=== PATIENT | male | born 1965 | race Caucasian/White ===

== ENCOUNTER 2018-11-11 07:54 | Day surgery (SDC) | payer OTHER ==
[~2018-11-11] VITALS: Ht 177.8 cm; Wt 105.2 kg
[~2018-11-11 07:54] MED LIST: MONTELUKAST SOD10 MG PO; WELLBUTRIN SR100 MG PO
--- NOTE | 2018-11-11 09:16 | NUR ---
11/11/18 0916 Lu Mckinley 0906- PT ARRIVES TO PACU. PT IS AROUSABLE TO NOXIOUS STIMULI, UNABLE TO FOLLOW INSTRUCTIONS. PT FALLS INSTANTLY BACK TO SLEEP. RESP EVEN AND UNLABORED. PT DOES SNORE WHEN SLEEPING. OXYGEN SAT HIGH 90'S ON 3L VIA NC. CO2 MONITOR STAYING IN THE 30'S. 0910- PT IS AROUSABLE TO VOICE. FALLS INSTANTLY BACK TO SLEEP.
--- NOTE | 2018-11-12 08:12 | OR ---
[facility] [address] [place], [place] [address] Signed DATE OF OPERATION: 11/11/2018 SURGEON: Nawaf Cleary MD PREOPERATIVE DIAGNOSES: 1. Right-sided diverticulosis. 2. Screening. POSTOPERATIVE DIAGNOSES: 1. Right and left-sided [id number] diverticulosis. 2. 5 mm polyp at 26 cm. 3. 3 mm polyps x3 at 10 cm. 4. Mildly indurated prostate gland. PROCEDURE PERFORMED: Colonoscopy with hot biopsy. ESTIMATED BLOOD LOSS: None. INDICATIONS: Shawn is a 53-year-old gentleman, asked to see me for a followup screening colonoscopy. In 2007, he had a colonoscopy for diarrhea, melena, and change in bowel habits. At that time, he had a diverticulum in the mid right colon. His biopsies came back unremarkable. He has no family history of colon cancer or polyps. He currently has no lower GI complaints. In the office, I gave him a pamphlet on colonoscopy. He understands the nature of the test along with the risks including but not limited to gas bloating, crampy abdominal pain, bleeding, perforation, requiring surgery, and missed diagnosis. He also understands the need for IV conscious sedation. He had expressed understanding and wished to proceed. PROCEDURE NOTE: Shawn was taken into our operating room and placed in the left lateral decubitus position. He was given IV sedation with 9 mg of Versed and 175 mcg of fentanyl to cover the case. A digital rectal exam was performed. He has good sphincter tone. His prostate is ever so slightly enlarged and mildly indurated. The adult colonoscope was then introduced and advanced all around into the cecum under direct visualization of camera without difficulty. His prep was good. The scope was slowly withdrawn. We took pictures throughout for photodocumentation. On this occasion, he does have moderate sized diverticula in the right colon. They were relatively few in number and scattered Electronically Signed By: NAWAF CLEARY MD 11/12/18 0812 PATIENT NAME: SHAWN ANN OPERATIVE REPORT DATE OF : 65 REPORT #: [id number] PHYSICIAN: NAWAF CLEARY MD PCP: NICHO MURRY PAC REPORT IS CONFIDENTIAL AND NOT TO BE RELEASED WITHOUT AUTHORIZATION [facility] [address] [place], [place] [address] Signed about. We also saw the same thing in the sigmoid colon. He had just a small polyp at 26 cm, which we removed with hot biopsy forceps. Similarly, he had 3 tiny polyps in the rectum which we removed. Upon retroflexion of the scope, there was no additional pathology noted above the anal canal. After this, the gas was suctioned out and the colonoscope removed. Shawn tolerated the procedure quite well. RECOMMENDATIONS: I will see Shawn back in my office in 7 to 14 days to review his results. MD SHANT Valles/COLBY /[id number] cc: MD Eric Valles, PA Copies: NAWAF CLEARY MD ~ Electronically Signed By: NAWAF CLEARY MD 11/12/18 0812 PATIENT NAME: SHAWN ANN OPERATIVE REPORT DATE OF : 65 REPORT #: [id number] PHYSICIAN: NAWAF CLEARY MD PCP: NICHO MURRY PAC REPORT IS CONFIDENTIAL AND NOT TO BE RELEASED WITHOUT AUTHORIZATION
== END 2018-11-11 10:15 | disposition home or self-care (01) ==
LOC: OPS 07:54 → DS 07:54 → OPS 09:00 → DS 09:00 → OPS 10:15
PROVIDERS: Colon & Rectal Surgery
PROC: 0DBE8ZX Excision of Large Intestine, Via Natural or Artificial Opening Endoscopic, Diagnostic (ICD-10-PCS; 2018-11-11)
PROC: 0DBP8ZX Excision of Rectum, Via Natural or Artificial Opening Endoscopic, Diagnostic (ICD-10-PCS; principal; 2018-11-11 09:00)
DX: Z12.11 Encounter for screening for malignant neoplasm of colon (principal); K63.5 Polyp of colon; K62.1 Rectal polyp; N42.89 Other specified disorders of prostate; K57.30 Diverticulosis of large intestine without perforation or abscess without bleeding; I10 Essential (primary) hypertension; E78.5 Hyperlipidemia, unspecified; Z88.0 Allergy status to penicillin
CPT/HCPCS: 99153; G0500; J2250; J3010; J7120